=== PATIENT | female | born 1945 | race Caucasian/White ===

== ENCOUNTER 2016-12-20 09:15 | Emergency (ER) | payer MEDICARE ==
--- NOTE | 2016-12-20 10:07 | PICIS ---
[facility] EMERGENCY RECORD TRIAGE (TueDec 20, 2016 09:20 KMOR) TRIAGE NOTES: Left foot pain started yesterday, no injury. (TueDec 20, 2016 09:20 KMOR) PATIENT: NAME: Madalyn Thurston, AGE: 71, GENDER: female, : Tue1945, TIME OF GREET: TueDec 20, 2016 09:15, PREFERRED LANGUAGE: Vietnamese, ETHNICITY: Not or , ECODE BILLING MAP: [facility], SSN: [id number], Zip Code: [address], KG WEIGHT: 84.82, , , PERSON ID: [id number], PAYMENT: [employer], PCP: Nadine Harris. (TueDec 20, 2016 09:20 KMOR) PHONE: . (09:25) COMPLAINT: Left foot pain. (TueDec 20, 2016 09:20 KMOR) ADMISSION: URGENCY: 4 Non Urgent, ADMISSION SOURCE: Home, TRANSPORT: CAR, BED: ER -02. (TueDec 20, 2016 09:20 KMOR) ASSESSMENT: Assessment: A&OX4. RR EVEN AND UNLABORED., Symptoms began yesterday. (09:22 KMOR) PAIN: Patient complains of pain described as, aching, on a scale 0-10 patient rates pain as 7, Location LEFT FOOT. (09:22 KMOR) IMMUNIZATIONS: Flu vaccine not up to date, Tetanus not up to date, Pneumococcal vaccine not up to date. (09:22 KMOR) SIRS SCORING: Heart Rate 55-109 (0), Temp range 96.8-101.1 (0), respiratory rate 12-24 (0), Mental Status altered: no (0), Infection or Suspected Infection: No. (09:22 KMOR) TRIAGE SCREENING: Patient denies suicidal ideation, Patient denies presence of domestic violence. (09:22 KMOR) LMP: LMP: Hysterectomy. (09:22 KMOR) TREATMENTS IN PROGRESS: Medications Given, Tylenol 1000mg at 0730. (09:22 KMOR) PROVIDERS: TRIAGE NURSE: Mckenna Lerner RN. (TueDec 20, 2016 09:20 KMOR) VITAL SIGNS: BP 131/70, Pulse 91, Resp 18, Temp 98.1, (Oral), Pain 7, O2 Sat 98, on Room Air, Time 12/20/2016 09:18. (09:18 KMOR) PREVIOUS VISIT ALLERGIES: Vicodin. (TueDec 20, 2016 09:20 KMOR) Vicodin. (09:22 KMOR) KNOWN ALLERGIES Vicodin: Reaction: Hives CURRENT MEDICATIONS lisinopril-hydrochlorothiazide: TABLET : Strength - 20 mg-25 mg : ORAL Patient Dose: Unknown. (09:22 JSMI) NIFEdipine: TABLET, EXTENDED RELEASE : Strength - 30 mg : ORAL Patient Dose: Unknown. (09: JSMI) aspirin: TABLET : Strength - 325 mg : ORAL Patient Dose: Unknown. (09: JSMI) &a-1R&a+25V*p+0X*o4570L*c202B*c15G*c2P*p-0X&a-25V&a+1R Name: Madalyn Thurston : 1945 F71 MedRec: [id number] AcctNum: [id number] Prepared: TueDec 21, 2016 09:21 by Interface Page 1 of 6 pMD [facility] EMERGENCY RECORD Tylenol: TABLET : Strength - 325 mg : ORAL Patient Dose: As Needed. (09:23 JSMI) VITAL SIGNS VITAL SIGNS: BP: 131/70, Pulse: 91, Resp: 18, Temp: 98.1 (Oral), Pain: 7, O2 sat: 98 on Room Air, Time: 12/20/2016 09:18. (09:18 KMOR) BP: 106/76, Pulse: 67, Resp: 14, Pain: 7, O2 sat: 97 on Room Air, Time: 12/20/2016 09:49. (09:49 JSMI) NURSING ASSESSMENT: EXTREMITY LOWER (09:25 KMOR) CONSTITUTIONAL: Patient arrives ambulatory, Gait steady, History obtained from patient, Patient appears comfortable, Patient cooperative, Patient alert, Oriented to person, place and time, Skin warm, Skin dry, Skin normal in color, Mucous membranes pink, Mucous membranes moist, Patient is well-groomed, Patient complains of Left foot pain, Left foot pain started yesterday in 4th digit and radiates to left dorsal foot. Patient reports no injury. PAIN: aching pain, to the fourth metatarsal on the left foot, to the left foot, on a scale 0-10 patient rates pain as 7. LEFT LOWER EXTREMITY: Left lower extremity assessment findings include capillary refill less than 2 seconds, Skin color normal, Skin temperature warm, Distal sensation intact, Muscle tone normal, muscle strength 5, no edema present, dorsalis pedis pulse is +3, Inspection findings include no contusion, Inspection findings include no redness, Inspection findings include no swelling. RIGHT LOWER EXTREMITY: Right lower extremity assessment findings include capillary refill less than 2 seconds, Skin color normal, Skin temperature warm, Distal sensation intact, Muscle tone normal, muscle strength 5, no edema present, dorsalis pedis pulse is +3, Inspection findings include no contusion, Inspection findings include no redness, Inspection findings include no swelling. NOTES: Patient tolerated procedure well. NURSING PROCEDURE: BEDSIDE RADIOLOGY (09:37 KMOR) PATIENT IDENTIFIER: Patient actively involved in identification process, Patient's identity verified by patient stating name, Patient's identity verified by patient stating date. BEDSIDE RADIOLOGY: Portable x-ray performed, of the left foot. NOTES: Patient tolerated procedure well. NURSING PROCEDURE: DISCHARGE NOTE (09:50 JSMI) DISCHARGE: Patient discharged to home, ambulating with crutches, family driving, accompanied by //partner, Summary of Care printed/ provided, Patient requested and was provided an electronic copy of Discharge Instructions, Transition record given to patient, Discharge instructions given to patient, Simple or moderate discharge teaching performed, Prescriptions given and instructions on side effects given, Medication reconciliation form &a-1R&a+25V*p+0X*u6434M*c202B*c15G*c2P*p-0X&a-25V&a+1R Name: Madalyn Thurston : 1945 F71 MedRec: [id number] AcctNum: [id number] Prepared: TueDec 21, 2016 09:21 by Interface Page 2 of 6 pMD [facility] EMERGENCY RECORD given, Above person(s) verbalized understanding of discharge instructions and follow-up care, Patient treated and evaluated by physician, Phone number confirmed. ORDER DETAILS Order Name: CRUTCH ACQUISTION AND INSTRUCTION ED, Status: Done, Time: 14:16 12/20/2016, User: [email or web address], - Ordered for: DO Finch Matthew, - Entered by: TONY Lerner Krista - TueDec 20, 2016 14:16, - Quantity: 1, Order Name: XR Foot Lt 3 View STANDARD, Status: Active, Time: 09:27 12/20/2016, User: [email or web address], - Ordered for: DO Finch Matthew, - Entered by: DO Finch Matthew - TueDec 20, 2016 09:27, - Quantity: 1. HPI FOOT (09:28 MBRI) CHIEF COMPLAINT: Patient presents for evaluation of pain, to the left foot. HISTORIAN: History provided by patient, History provided by patient's spouse. MECHANISM OF INJURY: Mechanism of injury: Body motion, Pt states that she was shopping yesterday and that after that her left foot and left 4th toe began hurting. It got better for a bit but when she got up during the football game last night it was hurting worse. Particularly when she would try to walk on it. This lasted until about 0330 when she was able to fall asleep. Still having pain this am and hurts to ambulate. LOCATION: Symptoms are localized, most severe in the fourth metatarsal, Radiation is not present. QUALITY: Pain is sharp in nature, described as shooting. SEVERITY: Maximum severity of symptoms moderate, Currently symptoms are moderate. TIME COURSE: Gradual onset of symptoms, Symptoms are worsening, are intermittent. ASSOCIATED WITH: No associated distal injury, No associated distal neuro complaint, No associated erythema, No associated fever, No associated inability to ambulate, No associated inability to bear weight, No associated open wounds, Associated with pain on walking, Denies any other complaints. EXACERBATED BY: Patient's condition exacerbated by walking, Patient's condition exacerbated by bearing weight. RELIEVED BY: Patient's condition relieved by elevation, Patient's condition relieved by rest. ROS (09:31 MBRI) CONSTITUTIONAL: Negative constitutional review of systems, Historian denies fever. MUSCULOSKELETAL: Historian reports arthralgias, denies back pain, denies deformity, denies fall, denies injury, denies joint &a-1R&a+25V*p+0X*j9758J*c202B*c15G*c2P*p-0X&a-25V&a+1R Name: Madalyn Thurston : 1945 F71 [id number] [id number] Prepared: TueDec 21, 2016 09:21 by Interface Page 3 of 6 pMD [facility] EMERGENCY RECORD redness, denies joint stiffness, denies joint swelling, denies spasms. SKIN: Negative skin review of systems, Historian denies cellulitis, denies induration, denies rash. NEUROLOGIC: Negative neurologic review of systems. PAST MEDICAL HISTORY (09:22 KMOR) MEDICAL HISTORY: Flu vaccine not up to date, Tetanus not up to date, Pneumococcal vaccine not up to date, Past medical history includes history of hypertension. FEMALE SURGICAL HISTORY: BACK SURGERY, FOOT, RIGHT HAND AND CARPAL TUNNEL., Surgical history of appendectomy, Surgical history of cholecystectomy, Surgical history of hysterectomy. VERIFIED 09/28/14. PSYCHIATRIC HISTORY: No previous psychiatric history. SOCIAL HISTORY: Patient denies alcohol use, Patient denies drug use, Patient has no smoking history. PHYSICAL EXAM (09:32 MBRI) CONSTITUTIONAL: Vital Signs Reviewed, Patient appears pain free, Nursing notes reviewed. LOWER EXTREMITY: Lower extremity exam included findings of inspection normal, Range of motion normal, Motor strength normal, Sensation intact, Posterior tibial pulse normal, Pedal pulse normal, Darlene's negative, distal pulses intact, capillary refill less than 2 seconds, distal motor intact, distal sensory intact, no cyanosis, no clubbing, no edema, no calf tenderness, no palpable cords, Knee examination normal findings, left knee, no abrasions, no deformity, no ecchymosis, no swelling, no hematoma, no erythema, no warmth, no tenderness to palpation, full range of motion, Lower leg normal, left leg, no abrasions, no crepitus, no ecchymosis, no induration, no lacerations, no obvious deformity, no erythema, no swelling, no tenderness, Ankle examination normal findings, left ankle, no abrasions, no deformity, no ecchymosis, no swelling, no hematoma, no erythema, no warmth, no tenderness to palpation, full range of motion, Tendon function normal, Foot examination normal findings, left foot, no abrasions, no deformity, no ecchymosis, no swelling, no hematoma, no erythema, no warmth, full range of motion, Foot tenderness, left foot, plantar, dorsal, 4th toe, TTP localized over the the distal 4th metatarsal region. NEURO: Thor coma scale 15, Neuro exam findings include patient oriented to person, place and time, Speech normal, Gait abnormal, with limp, no focal motor deficits, no focal sensory deficits. SKIN: Skin exam included findings of skin warm, dry, and normal in color. EVENTS &a-1R&a+25V*p+0X*d5151U*c202B*c15G*c2P*p-0X&a-25V&a+1R Name: Madalyn Thurston : 1945 F71 MedRec: [id number] AcctNum: [id number] Prepared: TueDec 21, 2016 09:21 by Interface Page 4 of 6 pMD [facility] EMERGENCY RECORD TRANSFER: Triage to Emergency Emergency Room -02. (TueDec 20, 2016 09:20 KMOR) Removed from Emergency Emergency Room -02. (10:00 JSMI) RADIOLOGYINTERPRETATION LOWER EXTREMITIES: Foot films negative, on the left, no fracture, no dislocation. (09:47 MBRI) CONCRETE SPREADER: Preliminary review of x-rays by, ED Physician. (09:46 MBRI) O2SAT INTERPRETATION (09:28 MBRI) O2SAT: Oxygen saturation interpretation: Normal. DOCTOR NOTES (09:47 MBRI) TEXT: Pt evaluated at this time and appears stable. No findings to suggest sig illness or issue requiring hospitalization or further intervention at this time. Plan of care discussed with pt and questions answered. Pt was informed of reasons for follow-up and return and they stated understanding. Pt is stable for d/c home at this time. PROBLEM LIST No recorded problems DIAGNOSIS (09:47 MBRI) FINAL: PRIMARY: LEFT foot pain, ADDITIONAL: Probable osteoarthritis. DISPOSITION PATIENT: Disposition Type: Discharge, Disposition: *Discharge Home, Condition: Good. (09:47 MBRI) Patient left the department. (10:00 JSMI) INSTRUCTION (09:49 MBRI) DISCHARGE: FOOT SPRAIN, ARTHRITIS OSTEO. FOLLOWUP: [facility], [facility], [address] [place] [address] , , Follow up with Primary Care Physician in 7-10 days. SPECIAL: Please return for any further issues or concerns, we would be happy to see you. We hope you feel better soon. Follow-up with your PCP as needed in the next week. PRESCRIPTION (09:48 MBRI) Naprosyn: TABLET : 250 mg : ORAL : Quantity: 1 Unit: tab(s) Route: ORAL Schedule: every 12 hours Dispense: 30 May substitute. Refills: No Refills . NOTES: No refills. IMAGING (10:01 [facility]) &a-1R&a+25V*p+0X*j5243Q*c202B*c15G*c2P*p-0X&a-25V&a+1R Name: Madalyn Thurston : 1945 F71 MedRec: [id number] AcctNum: [id number] Prepared: TueDec 21, 2016 09:21 by Interface Page 5 of 6 pMD [facility] EMERGENCY RECORD *SUPPLY CHARGE SHEET: Image captured from scanner. *DISCHARGE INSTRUCTIONS RECEIPT: Image captured from scanner. ADMIN DIGITAL SIGNATURE: TONY Lerner, Mckenna. (14:17 KMSD) DO Finch Matthew. (TueDec 21, 2016 09:19 MBRI) Gonzales: ALEX=TONY Moreira Julie KMOR=TONY Lerner Krista MBRI=DO Finch Matthew &a-1R&a+25V*p+0X*c0713C*c202B*c15G*c2P*p-0X&a-25V&a+1R Name: Madalyn Thurston : 1945 F71 MedRec: [id number] AcctNum: [id number] Prepared: TueDec 21, 2016 09:21 by Interface Page 6 of 6 D [facility] MEDICATION RECONCILIATION You were seen in the Emergency Department on: TueDec 20, 2016 KNOWN ALLERGIES Vicodin: Reaction: Hives HOME MEDICATIONS CONTINUE PRESCRIBED aspirin : TABLET : Strength - 325 mg : ORAL Continue as prescribed Patient had been taking: Dose unknown lisinopril-hydrochlorothiazide : TABLET : Strength - 20 mg-25 mg : ORAL Continue as prescribed Patient had been taking: Dose unknown NIFEdipine : TABLET, EXTENDED RELEASE : Strength - 30 mg : ORAL Continue as prescribed Patient had been taking: Dose unknown Tylenol : TABLET : Strength - 325 mg : ORAL Continue as prescribed Patient had been taking: As Needed. Notes from the emergency department Reviewed with patient PRESCRIPTIONS (1) &a-1R&a+25V*p+0X*d9467T*c202B*c15G*c2P*p-0X&a-25V&a+1R Name: Madalyn Thurston : 1945 F71 MedRec: [id number] AcctNum: [id number] Prepared: [place]y Dec 21, 2016 09:21 by Interface Stoney WILD
--- NOTE | 2016-12-20 18:03 | RAD ---
LEFT FOOT 3 VIEWS: Date: 12/20/16 FINDINGS: No fracture, dislocation, or periosteal reaction seen. Bunion formation is noted on the medial first metatarsal head with overlying soft tissue swelling. IMPRESSION: No acute bony findings. POS: HOME
== END 2016-12-20 09:51 | disposition home or self-care (01) ==
LOC: BURERS 09:15
DX: M79.672 Pain in left foot (principal); I10 Essential (primary) hypertension; Z79.82 Long term (current) use of aspirin; Z79.899 Other long term (current) drug therapy
CPT/HCPCS: 99283

== ENCOUNTER 2022-01-08 14:52 | Emergency (ER) | payer OTHER, MEDICARE | END 2022-01-08 15:49 | disposition home or self-care (01) | LOC: BURERS 14:52 | DX: S43.401A Unspecified sprain of right shoulder joint, initial encounter (principal); S80.02XA Contusion of left knee, initial encounter; S80.01XA Contusion of right knee, initial encounter; I10 Essential (primary) hypertension; W10.9XXA Fall (on) (from) unspecified stairs and steps, initial encounter; Y93.01 Activity, walking, marching and hiking; Y92.512 Supermarket, store or market as the place of occurrence of the external cause ==